=== PATIENT | female | born 1995 | race American Indian/Alaskan Native ===

== ENCOUNTER 2017-05-20 13:01 | Emergency (ER) | payer MEDICAID, OTHER ==
[2017-05-20 13:29] VITALS: TEMP 98.1; O2SAT 100
--- NOTE | 2017-05-20 14:01 | ED PDOC ---
Arrival/HPI - General Chief Complaint: Female Genitourinary Time Seen by Provider: 05/20/17 13:10 Historian: Patient - History of Present Illness Narrative History of Present Illness (Text): Patient is a 22 year old female with no past medical history presenting to the ED with a CC of intermittent cramping in the RLQ of her abdomen. Patient is that took a home test 2 days ago, which was positive. The patient 's last menstrual cycle was April 15. She has has been having unprotected sex with one person. She does not want the and already has plans to have an . The cramping in her abdomen is localized in the RLQ and does not radiate. The cramping, which feels like menstrual cramps, lasts for about 15 seconds at a times. It is more prominent at night time. Nothing makes the pains better or worse. She has not taken any medications for the pain. She has no dysuria but describes a pressure-like sensation after she urinates. She denies any vaginal discharge or pain with vaginal intercourse. She is coming to the ER today because she is curious why she is having these cramping sensations in her RLQ. Denies fevers, chills, nausea, vomiting, diarrhea, constipation, chest pain , shortness of breath, headaches, vision changes, numbness or tingling. PMH: Denies PSH: Denies Family: non-contributory Social: Denies tobacco, alcohol or illicit drug use Allergies: NKDA Time/Duration: 1 week Past Medical History - Provider Review Nursing Documentation Reviewed: Yes - Psychiatric Hx Psychophysiologic Disorder: No Hx Substance Use: No Family/Social History - Physician Review Nursing Documentation Reviewed: Yes Family/Social History: No Known Family HX Smoking Status: Never Smoked Hx Alcohol Use: No Hx Substance Use: No Allergies/Home Meds Allergies/Adverse Reactions: Allergies No Known Allergies Allergy (Verified 05/20/17 13:24) Review of Systems - Physician Review All systems were reviewed & negative as marked: Yes (except as per HPI) - Review of Systems Constitutional: Normal. absent: Fevers Eyes: Normal. absent: Vision Changes ENT: Normal. absent: Sore Throat, Sinus Congestion Respiratory: Normal. absent: SOB, Cough Cardiovascular: Normal. absent: Chest Pain, Calf Pain Gastrointestinal: Abdominal Pain (intermittent RLQ (last for 15 sec at a time) - not currently present). absent: Constipation, Diarrhea, Nausea, Vomiting Genitourinary Female: Normal. absent: Dysuria, Hematuria, Urine Output Changes , Vaginal Bleeding Musculoskeletal: Normal. absent: Myalgias Skin: Normal. absent: Rash, Pruritis Neurological: Normal. absent: Headache Endocrine: Normal. absent: Diaphoresis Hemo/Lymphatic: Normal Psychiatric: Normal. absent: Anxiety Physical Exam Vital Signs Reviewed: Yes Vital Signs Temp Pulse Resp BP Pulse Ox 05/20/17 15:59 67 18 121/63 100 05/20/17 13:24 98.1 F 66 16 118/69 100 Temperature: Afebrile Blood Pressure: Normal Pulse: Regular Respiratory Rate: Normal Appearance: Positive for: Well-Appearing Pain Distress: None Mental Status: Positive for: Alert and Oriented X 3 - Systems Exam Head: Present: Atraumatic, Normocephalic Pupils: Present: PERRL Extroacular Muscles: Present: EOMI Conjunctiva: Present: Normal Mouth: Present: Moist Mucous Membranes Nose (External): Present: Atraumatic Neck: Present: Normal Range of Motion Respiratory/Chest: Present: Clear to Auscultation, Good Air Exchange. No: Respiratory Distress, Accessory Muscle Use Cardiovascular: Present: Regular Rate and Rhythm, Normal S1, S2 Abdomen: No: Tenderness (denies TTP in RLQ at time of exam), Distention, Normal Bowel Sounds, Peritoneal Signs, Rebound, Guarding Upper Extremity: Present: Normal Inspection. No: Edema Lower Extremity: Present: Normal Inspection. No: Edema Neurological: Present: GCS=15, CN II-XII Intact, Speech Normal, Motor Func Grossly Intact Skin: Present: Warm, Dry, Normal Color Psychiatric: Present: Alert, Oriented x 3, Normal Insight, Normal Concentration Medical Decision Making Re-evaluation Time: 16:15 Reassessment Condition: Re-examined, Unchanged (no pain currently) - Lab Interpretations Lab Results: Lab Results 05/20/17 14:50: Beta HCG, Quant 586.72 H 05/20/17 14:20: Urine HCG, Qual Positive - RAD Interpretation Narrative RAD Interpretations (Text): 05/20/17 16:23 Tiny cystic area in the central endometrial is nonspecific and could represent cystic change or minimal fluid. Very early gestation is also a consideration given positive beta HCG levels. No adnexal mass. Clinical follow-up, correlation with serial beta HCG levels and imaging follow- up is recommended Radiology Orders: 05/20/17 14:34 TRANSVAGINAL [US] Urgent Well Control Instructor: Radiologist Disposition/Present on Arrival - Present on Arrival Any Indicators Present on Arrival: No History of DVT/PE: No History of Uncontrolled Diabetes: No Urinary Catheter: No History of Decub. Ulcer: No History Surgical Site Infection Following: None - Disposition Have Diagnosis and Disposition been Completed?: Yes Diagnosis: and not yet delivered in first trimester Disposition: HOME/ ROUTINE Disposition Time: 16:20 Patient Problems: Current Active Problems Problem Status Onset and not yet delivered in first trimester Acute Condition: GOOD Discharge Instructions (ExitCare): Medications and , Alcohol and , Care, - The First Month, - The Second Month Print Language: IRISH Additional Instructions: Patient is to be discharged home per Dr. Stearns. Patient is to follow up with her [facility] within one week of being discharged. Patient and her mother were instructed to return to the nearest emergency room if patient begins to experience any new or worsening symptoms, including but not limited to fever, chills, nausea, vomiting and/or severe abdominal pain. Prescriptions: Multivit/Folic Acid/I [ Plus] 1 cap PO DAILY #30 tab Referrals: [facility] [Outside] - [facility] [[facility] - Follow up with primary Forms: [employer] (Kyrgyz)
--- NOTE | 2017-05-20 15:55 | US ---
HISTORY: RLQ pain in , r/o ectopic COMPARISON: None available. TECHNIQUE: Transvaginal pelvic ultrasound was performed. FINDINGS: UTERUS: Measures 7.8 x 4.4 x 5.1 cm. Normal in size and appearance. No fibroid or other mass lesion seen. ENDOMETRIUM: Measures 1.5 mm in diameter. There is a tiny cystic area in the central endometrium. CERVIX: No cervical abnormality identified. RIGHT OVARY: Measures 3.8 x 2.7 x 4.2 cm. No solid mass. Normal flow. LEFT OVARY: Measures 3.3 x 3.2 x 1.7 cm. No solid mass. Normal flow. FREE FLUID: There is trace free fluid in the cul de sac. OTHER FINDINGS: None. IMPRESSION: Tiny cystic area in the central endometrial is nonspecific and could represent cystic change or minimal fluid. Very early gestation is also a consideration given positive beta HCG levels. No adnexal mass. Clinical follow-up, correlation with serial beta HCG levels and imaging follow-up is recommended.
[2017-05-20 16:00] VITALS: BP 121/63; PULSE 67; RESP 18
== END 2017-05-20 16:40 | disposition home or self-care (01) ==
LOC: ED 13:01 → MERGE 13:01 → ED 16:40
DX: O26.91 Pregnancy related conditions, unspecified, first trimester (principal); Z3A.00 Weeks of gestation of pregnancy not specified